=== PATIENT | male | born 1995 | race Hispanic/Latino ===

== ENCOUNTER 2019-06-01 04:13 | Emergency (ER) | payer BC | END 2019-06-01 05:10 | disposition home or self-care (01) | LOC: NAV ERS 04:13 | DX: K91.841 Postprocedural hemorrhage of a digestive system organ or structure following other procedure (principal); I10 Essential (primary) hypertension; E66.9 Obesity, unspecified; F32.9 Major depressive disorder, single episode, unspecified; M10.9 Gout, unspecified; Z79.899 Other long term (current) drug therapy; F41.0 Panic disorder [episodic paroxysmal anxiety] | CPT/HCPCS: 99283 ==

== ENCOUNTER 2022-01-29 02:04 | Emergency (ER) | payer BC, SELFPAY ==
[2022-01-29] MEDS ORDERED: Ketorolac Tromethamine 60 MG/2 ML VIAL ONE (02:30)
== END 2022-01-29 02:50 | disposition home or self-care (01) ==
LOC: NAV ERS 02:04
DX: H60.501 Unspecified acute noninfective otitis externa, right ear (principal); I10 Essential (primary) hypertension; Z79.899 Other long term (current) drug therapy
CPT/HCPCS: 96372; 99282; J1885

== ENCOUNTER 2022-04-04 07:51 | Emergency (ER) | payer SELFPAY ==
[2022-04-04 08:27] LABS: Bilirubin Small (Negative); Blood, Urine Large (Negative); Clarity Clear (Clear); Glucose, Urine (Dipstick) Negative (Negative); Ketone, Urine Negative (Negative); Leukocyte Negative (Negative); Nitrite Negative (Negative); Protein, Urine (Dipstick) Negative (Neg-Trace); Urobilinogen 0.2 mg/dL (Less than 2); pH, Urine 5.5 (5.0-9.0)
[2022-04-04 08:28] LABS: Bacteria/HPF Rare-Few HPF (None Seen); RBC/HPF 21-50 HPF (0-3); Squamous Epithelial 0-3 HPF (0-3); WBC/HPF None Seen HPF (0-3)
[2022-04-04] MEDS ORDERED: Ondansetron ODT 4 MG TAB ONE (08:34)
[2022-04-04] MEDS ORDERED: HYDROcodone/Acetaminophen 5/325 mg Tablet ONE (09:50)
[2022-04-04] MEDS ORDERED: Ketorolac Tromethamine 60 MG/2 ML VIAL ONE (09:51)
[2022-04-04 23:53] LABS: Chlam.trachomatis by PCR,Urine Not Detected (NotDetected)
== END 2022-04-04 10:01 | disposition home or self-care (01) ==
LOC: NAV ERS 07:51
DX: N20.2 Calculus of kidney with calculus of ureter (principal); R16.1 Splenomegaly, not elsewhere classified; R91.1 Solitary pulmonary nodule; I10 Essential (primary) hypertension
CPT/HCPCS: 74176; 81003; 81015; 87086; 87491; 87591; 96372; J1885; Q0162

== ENCOUNTER 2022-06-15 13:30 | Emergency (ER) | payer BC | END 2022-06-15 14:30 | disposition home or self-care (01) | LOC: NAV ERS 13:30 | DX: H66.92 Otitis media, unspecified, left ear (principal); J06.9 Acute upper respiratory infection, unspecified; I10 Essential (primary) hypertension | CPT/HCPCS: 99283 ==

== ENCOUNTER 2023-01-23 02:11 | Emergency (ER) | payer BC ==
[2023-01-23] MEDS ORDERED: Boostrix 0.5 ML (Tdap) VIAL (>/=7 yrs of age) ONE (02:26)
== END 2023-01-23 02:50 | disposition home or self-care (01) ==
LOC: NAV ERS 02:11
DX: S91.332A Puncture wound without foreign body, left foot, initial encounter (principal); I10 Essential (primary) hypertension; W45.0XXA Nail entering through skin, initial encounter
CPT/HCPCS: 90471; 90715